=== PATIENT | male | born 1955 | race Hispanic/Latino ===

== ENCOUNTER → 2024-09-09 | Outpatient (CLI) | payer OTHER ==
--- NOTE | 2024-09-09 11:33 | HMCIMG ---
US AORTA LIMITED REASON: NICOTINE DEPENDENCE COMPARISON: None TECHNIQUE: Screening aorta sonogram was performed. FINDINGS: There is normal appearance of the aorta. There are no significant atherosclerotic changes. There is no evidence of aneurysm or stenosis. Common iliac arteries appear unremarkable. IMPRESSION: 1. Negative screening exam of the aorta, no evidence of aneurysm.
== END | disposition home or self-care (01) ==
LOC: RAH 09:02
PROVIDERS: ATTEND Internal Medicine
DX: F17.200 Nicotine dependence, unspecified, uncomplicated (principal)
CPT/HCPCS: 76775